=== PATIENT | male | born 1960 | race Caucasian/White ===

== ENCOUNTER → 2018-02-11 | Outpatient (REF) ==
[~2018-02-11] MED LIST: ALLO-2 PO; ALLOPURINOL PO; CEP500 PO; CHOLESTEROL MED PO; LOR5 PO
== END ==
LOC: AUD 09:15
PROVIDERS: ATTEND Internal Medicine
DX: Z01.10 Encounter for examination of ears and hearing without abnormal findings (principal)
CPT/HCPCS: 92552

== ENCOUNTER → 2018-07-23 | Outpatient (CLI) | payer BC ==
[~2018-07-23] MED LIST changes: +TADA10TA PO
[2018-07-23 09:28] LABS: PLATELET COUNT, AUTOMATED 148 K/uL (150-450)
[2018-07-23 10:54] LABS: LDL CHOLESTEROL 115 mg/dl
== END ==
LOC: LAB 09:02
PROVIDERS: ATTEND Nurse Practitioner Family
DX: Z12.5 Encounter for screening for malignant neoplasm of prostate (principal); N52.9 Male erectile dysfunction, unspecified; M10.9 Gout, unspecified; E78.1 Pure hyperglyceridemia; Z79.899 Other long term (current) drug therapy; R79.89 Other specified abnormal findings of blood chemistry
CPT/HCPCS: 36415; 82040; 82247; 82310; 82374; 82435; 82465; 82565; 82947; 83718; 84075; 84132; 84153; 84155; 84295; 84402; 84403; 84439; 84443; 84450; 84460; 84478; 84481; 84520; 84550; 85025